=== PATIENT | female | born 1970 | race Caucasian/White ===

== ENCOUNTER → 2019-02-04 | Outpatient (CLI) | payer OTHER ==
[2019-02-05 00:07] LABS: ESTRADIOL LEVEL 34.1 pg/mL (.); FSH 91.9 mIU/mL (.); LUTEINIZING HORMONE 63.4 mIU/mL (.)
== END | disposition home or self-care (01) ==
LOC: LAB 11:36
PROVIDERS: ATTEND Nurse Practitioner Women's Health
DX: Z01.419 Encounter for gynecological examination (general) (routine) without abnormal findings (principal); N92.5 Other specified irregular menstruation
CPT/HCPCS: 36415; 82670; 83001; 83002